=== PATIENT | female | born 1940 ===

== ENCOUNTER 2018-08-02 09:09 | Outpatient (CLI) | payer OTHER | END 2018-08-02 10:00 | disposition home or self-care (01) | LOC: EDBD 09:09 → NUCLEAR 09:09 | DX: M51.16 Intervertebral disc disorders with radiculopathy, lumbar region (principal); M46.1 Sacroiliitis, not elsewhere classified; M51.17 Intervertebral disc disorders with radiculopathy, lumbosacral region | CPT/HCPCS: 78315; A9503 ==

== ENCOUNTER 2021-03-04 10:27 | Outpatient (CLI) | payer OTHER | END 2021-03-04 12:05 | disposition home or self-care (01) | LOC: RAD 10:27 | PROVIDERS: ATTEND Internal Medicine Pulmonary Disease | DX: R07.89 Other chest pain (principal); J45.40 Moderate persistent asthma, uncomplicated; R13.19 Other dysphagia ==